=== PATIENT | female | born 1960 | race Caucasian/White ===

== ENCOUNTER 2016-11-30 20:08 | Emergency (ER) | payer SELFPAY ==
[2016-11-30 20:51] LABS: CHLORIDE,CL 109 mmol/L (98-107); SODIUM,NA 143 mmol/L (136-145)
--- NOTE | 2016-11-30 20:55 | EDM.PDOC ---
ED HPI GENERAL MEDICAL PROBLEM - General Chief Complaint: Chest Pain Stated Complaint: Epigastric Chest Pain Time Seen by Provider: 11/30/16 20:32 Source of Information: Reports: Patient History Limitations: Reports: No Limitations - History of Present Illness Onset: Today, Sudden Duration: Hour(s):, Resolved Prior to Arrival Location: Reports: Chest, Abdomen Quality: Reports: Stabbing Improves with: Reports: None Worsens with: Reports: None Associated Symptoms: Reports: No Other Symptoms - Related Data Allergies Allergy/AdvReac Type Severity Reaction Status Date / Time amoxicillin [From Augmentin] Allergy Cannot Verified 11/30/16 20:22 Remember cefaclor [From Ceclor] Allergy Cannot Verified 11/30/16 20:22 Remember cephalexin [From Keflex] Allergy Cannot Verified 11/30/16 20:22 Remember clavulanic acid Allergy Cannot Verified 11/30/16 20:22 [From Augmentin] Remember codeine Allergy Cannot Verified 11/30/16 20:22 Remember metronidazole [From Flagyl] Allergy Cannot Verified 11/30/16 20:22 Remember tetracycline Allergy Cannot Verified 11/30/16 20:22 Remember Home Meds: Home Meds Mag Hydrox/Al Hydrox/Simeth [Antacid Liquid] 1 dose PO ASDIRECTED PRN 11/30/16 [ History] Past Medical History Cardiovascular History: Reports: CAD 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 Psychiatric History: Reports: Anxiety - Past Surgical History Respiratory Surgical History: Reports: Other (See Below) Other Respiratory Surgeries/Procedures: Old Granulonosis Disease Social & Family History - Tobacco Use Smoking Status *Q: Former Smoker Used Tobacco, but Quit: Yes Month Tobacco Last Used: 1984 - Caffeine Use Caffeine Use: Reports: None - Recreational Drug Use Recreational Drug Use: No ED ROS GENERAL - Review of Systems Review Of Systems: See Below Constitutional: Reports: No Symptoms HEENT: Reports: No Symptoms Respiratory: Reports: No Symptoms Cardiovascular: Reports: No Symptoms GI/Abdominal: Reports: No Symptoms Musculoskeletal: Reports: No Symptoms ED EXAM, GENERAL - Physical Exam Exam: See Below Exam Limited By: No Limitations General Appearance: No Apparent Distress Throat/Mouth: Normal Oropharynx Neck: Supple Respiratory/Chest: Lungs Clear, Normal Breath Sounds Cardiovascular: Regular Rate, Rhythm GI/Abdominal: Soft, Non-Tender Extremities: Normal Inspection EKG INTERPRETATION Rhythm: NSR Course - Vital Signs Last Recorded V/S: Last Vital Signs Temp 36.6 C 11/30/16 20:10 Pulse 62 11/30/16 20:10 Resp 16 11/30/16 20:10 BP 122/70 11/30/16 20:10 Pulse Ox 100 11/30/16 20:10 - Orders/Labs/Meds Orders: Active Orders 24 hr Category Date Time Status Cardiac Monitoring [RC] . DIRECTED Care 11/30/16 20:10 Active EKG Documentation Completion [RC] ASDIRECTED Care 11/30/16 20:28 Active EKG 12 Lead [EK] Routine Ther 11/30/16 20:28 Ordered Labs: Laboratory Tests 11/30/16 11/30/16 Range/Units 20:28 20:28 WBC 3.9 L (4.0-10.2) K/uL RBC 4.72 (3.77-5.09) M/uL Hgb 14.0 (11.7-15.5) g/dL Hct 40.7 (34.0-46.0) % MCV 86.2 (84.0-98.0) fL MCH 29.7 (28.2-33.3) pg MCHC 34.4 (31.7-36.0) g/dL RDW 13.1 (11.2-14.1) % Plt Count 153 (150-350) K/uL Neut % (Auto) 45.6 (45.0-80.0) % Lymph % (Auto) 44.4 (10.0-50.0) % [place] % (Auto) 8.4 (2.0-14.0) % Eos % (Auto) 1.3 (0.0-5.0) % Baso % (Auto) 0.3 (0.0-2.0) % Neut # (Auto) 1.80 (1.40-7.00) K/uL Lymph # (Auto) 1.75 (0.50-3.50) K/uL [place] # (Auto) 0.33 (0.00-1.00) K/uL Eos # (Auto) 0.05 (0.00-0.50) K/uL Baso # (Auto) 0.01 (0.00-0.20) K/uL Sodium 143 (136-145) mmol/L Potassium 3.7 (3.5-5.1) mmol/L Chloride 109 H (98-107) mmol/L Carbon Dioxide 27.0 (21.0-32.0) mmol/L BUN 16 (7-18) mg/dL Creatinine 0.86 (0.51-1.17) mg/dL Est Cr Clr Drug Dosing TNP Estimated GFR (MDRD) > 60 mL/min Glucose 96 (74-106) mg/dL Calcium 8.6 (8.5-10.1) mg/dL Total Bilirubin 0.4 (0.2-1.0) mg/dL AST 22 (15-37) U/L ALT 32 (12-78) U/L Alkaline Phosphatase 98 (46-116) IU/L Troponin I 0.000 (0.000-0.056) ng/mL Total Protein 7.0 (6.4-8.2) g/dL Albumin 3.8 (3.4-5.0) g/dL - Re-Assessments/Exams Free Text/Narrative Re-Assessment/Exam: 11/30/16 20:54 Pt stable in ER Departure - Departure Time of Disposition: 21:00 Disposition: Home, Self-Care 01 Clinical Impression: Chest pain Qualifiers: Chest pain type: unspecified Qualified Code(s): R07.9 - Chest pain, unspecified Instructions: Nonspecific Chest Pain, [id number] Forms: ED Department Discharge Additional Instructions: Pt to follow up in clinic - My Orders Last 24 Hours: My Active Orders 11/30/16 20:10 Cardiac Monitoring [RC] . DIRECTED 11/30/16 20:28 EKG Documentation Completion [RC] ASDIRECTED EKG 12 Lead [EK] Routine - Assessment/Plan Last 24 Hours: My Active Orders 11/30/16 20:10 Cardiac Monitoring [RC] . DIRECTED 11/30/16 20:28 EKG Documentation Completion [RC] ASDIRECTED EKG 12 Lead [EK] Routine
[2016-11-30] MEDS ORDERED: Aluminum Hydroxide/Magnesium Hydroxide/Simethicone Susp 30 ML Cup PO ONE (20:56)
[2016-11-30 22:30] VITALS: BP 144/84
== END 2016-11-30 21:10 | disposition home or self-care (01) ==
LOC: LL.ED 20:08
DX: R07.9 Chest pain, unspecified (principal); I25.10 Atherosclerotic heart disease of native coronary artery without angina pectoris; F41.9 Anxiety disorder, unspecified; Z87.891 Personal history of nicotine dependence; Z88.1 Allergy status to other antibiotic agents; Z88.5 Allergy status to narcotic agent
CPT/HCPCS: 36415; 80053; 84484; 85025; 93005; 99285; A9270; 99283; 99284